=== PATIENT | female | born 1995 | race Caucasian/White ===

== ENCOUNTER 2020-03-22 20:09 | Emergency (ER) | payer OTHER, SELFPAY ==
[~2020-03-22] VITALS: Ht 160 cm; Wt 72.6 kg
[2020-03-22 20:12] VITALS: Ht 160 cm; Wt 72.6 kg
[2020-03-22 22:17] LABS: UA SPECIFIC GRAVITY >=1.030 (1.005-1.035); microscopic required? YES; urine erythrocyte 1+ (NEGATIVE)
[2020-03-22 22:25] LABS: PLATELET COUNT 153 x10^3mcL (179-408); RED CELL DISTRIBUTION WIDTH 13.2 % (12.3-17.7)
[2020-03-22 22:31] LABS: CALCIUM 8.4 mg/dL (8.5-10.1); CARBON DIOXIDE 22.5 mmol/L (21-32); CHLORIDE SERUM 105 mmol/L (98-107); CREATININE SERUM 0.9 mg/dL (0.6-1.0); GFR1 > 60 mL/min; GLUCOSE SERUM 107 mg/dL (74-106); POTASSIUM SERUM 3.2 mmol/L (3.5-5.1); SODIUM SERUM 139 mmol/L (136-145)
[2020-03-22 22:34] LABS: BASOPHIL % 3.1 % (0.2-1.3)
[2020-03-22 22:35] LABS: ALBUMIN 3.7 g/dL (3.4-5.0); ALKALINE PHOSPHATASE 58 U/L (46-116); ALT/SGPT 26 U/L (14-59); AST/SGOT 25 U/L (15-37); BILIRUBIN TOTAL 0.3 mg/dL (0.20-1.00); C REACTIVE PROTEIN 5.4 mg/dL (<=0.9); LACTIC DEHYDROGENASE (LDH) 264 U/L (100-190); TOTAL PROTEIN, SERUM 7.6 g/dL (6.4-8.2)
[2020-03-23 01:27] VITALS: BP 119/76
== END 2020-03-23 02:25 | disposition home or self-care (01) ==
LOC: ED 20:09
PROVIDERS: Student in an Organized Health Care Education/Training Program
DX: U07.1 COVID-19 (principal)
CPT/HCPCS: 85378; 87804; J7030; Q0162; Q9967